=== PATIENT | male | born 2005 | race Two or more races ===

== ENCOUNTER 2025-05-03 18:46 | Emergency (ER) | payer OTHER ==
[~2025-05-03] VITALS: Ht 182.9 cm; Wt 67.4 kg
[2025-05-03 21:01] LABS: Trichomonas vaginalis (AMP) NOT DETECTED (NEGATIVE)
[2025-05-03 21:24] LABS: GC DNA AMPLIFICATION NEGATIVE (NEGATIVE)
[2025-05-03 23:11] VITALS: BP 139/79; TEMP 97.9; O2SAT 100
[2025-05-04] MEDS ORDERED: DOXY-441 PO (00:05)
[2025-05-04] MEDS: LIDOCAINE 1% SDV 5 ML VIAL DILUENT ONE (00:17)
[2025-05-04] MEDS: cefTRIAXone 500 MG VIAL IM ONE (00:17)
[2025-05-04] MEDS: DOXYCYCLINE HYCLATE 100 MG TABLET PO ONE (00:18)
== END 2025-05-04 00:21 | disposition home or self-care (01) ==
LOC: M ED 18:46
DX: Z20.2 Contact with and (suspected) exposure to infections with a predominantly sexual mode of transmission (principal); Z79.2 Long term (current) use of antibiotics
CPT/HCPCS: 87661; 87810; 87850; 96372; 99283; J0696